=== PATIENT | male | born 1990 | race Two or more races ===

== ENCOUNTER 2018-07-17 10:20 | Outpatient (CLI) | payer OTHER | END 2018-07-17 23:59 | disposition home or self-care (01) | LOC: CARD 10:20 | PROVIDERS: ATTEND Family Medicine | DX: G56.03 Carpal tunnel syndrome, bilateral upper limbs (principal); S11.91XA Laceration without foreign body of unspecified part of neck, initial encounter; X58.XXXA Exposure to other specified factors, initial encounter; Y93.89 Activity, other specified; Y92.89 Other specified places as the place of occurrence of the external cause; Y99.8 Other external cause status | CPT/HCPCS: 95886; 95908 ==